=== PATIENT | female | born 1940 | race Two or more races ===

== ENCOUNTER 2024-05-10 17:46 | Inpatient (IN) | payer MEDICARE, MEDICAID ==
[~2024-05-10] VITALS: Ht 160 cm; Wt 129.2 kg
--- NOTE | 2024-05-10 17:57 | ECG ---
[facility] Test Date: 2024-05-10 Test Time: 17:52:45 Pat Name: VISHAL MATHUR Department: ER Room: 0279 Gender: F Plant Attendant: EDWIN : 1940 Requested By: ERIC ACOSTA Order Number: [id number] Reading MD: Stevie Cote Measurements Intervals [place] Rate: 79 P: 11 MO: 187 QRS: -53 QRSD: 86 T: 53 QT: 387 QTc: 444 Interpretive Statements Sinus rhythm Left anterior fascicular block Anterior infarct, old Electronically Signed On 05-12-2024 8:53:11 PST by Stevie Cote Please click the below link to view image of tracing.
--- NOTE | 2024-05-10 18:44 | ECG ---
[facility] Test Date: 2024-05-10 Test Time: 18:43:16 Pat Name: VISHAL MATHUR Department: ER Room: 0279 Gender: F Rate Analyst: GP : 1940 Requested By: ERIC ACOSTA Order Number: [id number] Reading MD: Stevie Cote Measurements Intervals [place] Rate: 77 P: 19 GA: 188 QRS: -57 QRSD: 87 T: 94 QT: 392 QTc: 444 Interpretive Statements Sinus rhythm Probable left atrial enlargement Left anterior fascicular block Low voltage, precordial leads Consider anterior infarct Baseline wander in lead(s) I,II,III,aVL,aVF,V1 Electronically Signed On 05-12-2024 8:53:21 PST by Stevie Cote Please click the below link to view image of tracing.
--- NOTE | 2024-05-10 19:34 | ED.PDOC ---
History of Present Illness HPI Comments 83 y/o F, with a Hx of rheumatoid arthritis, morbid obesity, DM, HTN, and furosemide use, presents with daughter for c/o shortness of breath, fatigue, and right-upper back pain, today. Per daughter, patient has been sick with a cold, lately, characterized by fever, chills, and nonproductive cough, since 05/06/24,. She is stated to developed aforementioned symptoms, this evening, after waking up from a nap. Patient comments on back pain being secondary to a skin infection she has in that same area for unknown period of time and reports mixed compliancy in regards to taking her antibiotic medications for it. Daughter also notes on patient being on O2, lately, due to noticing her O2 saturation being in high 80's range since 05/06/24. Patient denies having any chest pain, dizziness, lightheadedness, nausea, vomiting, or other associated symptoms or [id number] at this time. Chief Complaint: Chest Pain Time Seen by MD: 17:55 Reviewed Notes: Nurses Notes, Medications, Allergies Allergies: Coded Allergies: NO KNOWN ALLERGIES (Unverified , 05/10/24) Information Source: Patient Mode of Arrival: Wheelchair Severity: Moderate Timing: Hours Duration: Since onset Prehospital treatment: Other (see HPI) Past Medical History PAST MEDICAL HISTORY: Arthritis (rheumatoid), DM, HTN Past Medical History (Other): morbid obesity, furosemide use Constitutional: reports: chills, fatigue, fever Respiratory: reports: cough, shortness of breath Musculoskeletal: reports: back pain All Other Systems: Reviewed and Negative (negative unless otherwise stated above or in HPI) Physical Exam General Appearance: No Apparent Distress, Obese HEENT: Normal ENT Inspection, Pharynx Normal, TMs Normal Neck: Full Range of Motion, Non-Tender, Normal, Normal Inspection Respiratory: Chest Non-Tender, Lungs Clear, No Accessory Muscle Use, No Respiratory Distress, Normal Breath Sounds Cardiovascular: No Edema, No JVD, No Murmur, No Gallop, Normal Peripheral Pulses, Regular Rate/Rhythm Breast Exam: Deferred Gastrointestinal: No Organomegaly, Non Tender, No Pulsatile Mass, Normal Bowel Sounds, Soft Genitalia: Deferred Pelvic: Deferred Rectal: Deferred Extremities: No calf tenderness, Normal capillary refill, Normal inspection, Normal range of motion, Non-tender, No pedal edema Musculoskeletal : Apperance: Normal Neurologic: Alert, ingot stripper II-XII nml as Tested, No Motor Deficits, Normal Affect, Normal Mood, No Sensory Deficits Cerebellar Function: Normal Reflexes: Normal Skin: Dry, Normal Color, Warm Lymphatic: No Adenopathy Was a procedure done? 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, Ant, Infarct Comments LAFB EKG #2: Pulse Rate (adult): 77 [place]: Normal Cardiac Rhythm: NSR Block: None Hypertrophy: None ST: Normal Comments LAFB Differential Dx Considerations may include: OR, PE, ACS, PNA, URI, viral syndrome, anxiety X-Ray, Labs, Meds, VS Vital Signs Date Time Temp Pulse Resp B/P (MAP) Pulse Ox O2 Delivery O2 Flow Rate FiO2 05/10/24 19:33 77 05/10/24 18:43 77 05/10/24 17:56 97.4 90 18 134/49 (77) 92 05/10/24 17:52 79 Lab Test 05/10/24 21:01 05/10/24 17:59 Range/Units Troponin I High Sensitivity Pending 3 L </=34 ng/L White Blood Count Pending Red Blood Count Pending Hemoglobin Pending Hematocrit Pending Mean Corpuscular Volume Pending Mean Corpuscular Hemoglobin Pending Mean Corpuscular Hemoglobin Concent Pending Red Cell Distribution Width Pending Platelet Count Pending Mean Platelet Volume Pending Neutrophils (%) (Auto) Pending Lymphocytes (%) (Auto) Pending Monocytes (%) (Auto) Pending Basophils (%) (Auto) Pending Neutrophils # (Auto) Pending Lymphocytes # (Auto) Pending Monocytes # (Auto) Pending Sodium Level 138 136-145 mmol/L Potassium Level 3.9 3.5-5.1 mmol/L Chloride Level 104 98-107 mmol/L Carbon Dioxide Level 26 20-31 mmol/L Anion Gap 8 5-15 Blood Urea Nitrogen 10 9-23 mg/dL Creatinine 0.82 0.550-1.02 mg/dL Glomerular Filtration Rate Calc 70 >90 mL/min BUN/Creatinine Ratio 12.2 10.0-20.0 Serum Glucose 124 H 74-106 mg/dL Calcium Level 9.1 8.7-10.4 mg/dL [facility] [address] [facility] [address] Ph: [phone] DIAGNOSTIC IMAGING Diagnostic Imaging Report : [id number] Signed PATIENT: VISHAL MATHUR ACCT: [id number] UNIT: [id number] : 1940 LOC: ER ROOM / BED: / AGE / SEX: 83 / F ADM STATUS: REG ER SERVICE 44 ORDERING PHYSICIAN: MANUEL BASURTO MD PROCEDURE(s): CXR2 - CHEST TWO VIEWS ROUTINE REASON: chest pain ORDER NUMBER(s): [id number], ACCESSION NUMBER(s): [id number] EXAMINATION: PA and lateral chest radiographs CLINICAL HISTORY: chest pain COMPARISON: None FINDINGS: Mild diffuse interstitial prominence. Hazy airspace opacity left lower lung field. No definite pneumothorax. Mild prominence of the cardiac silhouette. IMPRESSION: Left lower lobe trace opacity may be of infectious etiology. Interstitial prominence is relatively nonspecific but can be seen with edema, reactive airway changes as well as atypical infection. Please correlate clinically. ATED BY: RAMSES ORELLANA MD DICTATED DATE/TIME: 05/10/241932 SIGNED BY: RAMSES ORELLANA MD SIGNED DATE/TIME: 05/10/241932 CC: Time of 1ST Reevaluation: 18:25 Reevaluation 1ST: Unchanged Patient Education/Counseling: Diagnosis, Treatment Family Education/Counseling: Diagnosis, Treatment Additional Information The following tests were ordered, and results were reviewed by me: CXR, EKG, CBC, BMP, troponin Additional Information was gathered from interviewing the following independent historians: daughter I reviewed and agreed with the following test results read by other providers: CXR I discussed treatment and results with medical personnel and: daughter Departure 1 Departure Time of Disposition: 21:22 (Patient with a pneumonia. Patient is not septic. We will empirically cover patient with antibiotics and admit patient.) Impression: Primary Impression: Left lower lobe pneumonia Qualified Codes: J18.9 - Pneumonia, unspecified organism Additional Impressions: Left-sided chest pain Cough Qualified Codes: R05.1 - Acute cough Disposition: ADMITTED INPATIENT Admit to: Med Surg Condition: Serious Critical Care Note Critical Care Time?: No Stability Stability form required: No Heart Score Heart Score: Heart Score Response (Comments) Value History Moderate Suspicious 1 EKG Normal 0 Age >65 2 Risk Factors >3 or Hx ASHD 2 Troponin Normal limit 0 Total 5 I personally scribed for MANUEL BASURTO MD ([email or web address]) on 05/10/24 at 19:33. Electronically submitted by Jeevan Quinones ([email or web address]). I personally scribed for MANUEL BASURTO MD ([email or web address]) on 05/10/24 at 20:02. Electronically submitted by Jeevan Quinones ([email or web address]). MANUEL BASURTO MD May 10, 2024 19:33
[2024-05-10 20:40] LABS: Chloride 104 mmol/L (98-107); Potassium 3.9 mmol/L (3.5-5.1); Sodium 138 mmol/L (136-145)
[2024-05-10 20:41] LABS: Anion Gap 8 (5-15); Calcium 9.1 mg/dL (8.7-10.4); Carbon Dioxide 26 mmol/L (20-31)
[2024-05-10 20:46] LABS: BUN/Creatinine Ratio 12.2 (10.0-20.0); Blood Urea Nitrogen 10 mg/dL (9-23)
[2024-05-10 21:05] LABS: Glucose 124 mg/dL (74-106)
[2024-05-10] MEDS ORDERED: CEFEPIME 2GM/50ML NS 50 ML IV ONE (21:15)
[2024-05-10] MEDS: AZITHROMYCIN 250 MG TAB PO ONE (22:03)
[2024-05-10] MEDS: CEFEPIME 2GM/50ML NS 50 ML IV ONE (22:10)
[2024-05-10] MEDS ORDERED: ACETAMINOPHEN 325 MG TAB PO PRN (22:30)
[2024-05-10] MEDS: VANCOMYCIN 1GM/250ML KIT 200 ML IV ONE (22:59)
[2024-05-10 23:30] LABS: Basophils # (auto) 0 10 ^3/uL (0-0.2); Basophils % (auto) 0.3 % (0.0-2.0); Eosinophils # (auto) 0 10 ^3/uL (0-0.8); Eosinophils % (auto) 1.2 % (0.0-7.0); Hematocrit 36.4 % (36.0-46.0); Hemoglobin 12.2 g/dL (12.2-16.2); Lymphocytes # (auto) 1.2 10 ^3/uL (0.4-5.4); Lymphocytes % (auto) 30.9 % (10.0-50.0); Mean Corpuscular Hemoglobin 29.3 pg (28.0-32.0); Mean Corpuscular Hgb Conc. 33.4 g/dL (32.0-36.0); Mean Corpuscular Volume 87.7 fL (80.0-100.0); Monocytes # (auto) 0.5 10 ^3/uL (0-1.3); Monocytes % (auto) 11.5 % (0.0-12.0); Neutrophils # (auto) 2.3 10 ^3/uL (1.6-8.6); Neutrophils % (auto) 56.1 % (37.0-80.0); Nucleated Red Blood Cells % 0.1 %; Platelet Count (auto) 130 10^3/uL (140-450); Red Blood Cells 4.15 10^6/uL (4.0-5.20); Red Cell Distribution Width 14.9 % (11.8-14.3)
--- NOTE | 2024-05-10 23:34 | DVHHPRES ---
History of Present Illness Resident Creating Document: SHAIKHVASILE RESIDENT History of Present Illness Patient is an 83-year-old female with past medical history of rheumatoid arthritis, hypertension, osteoarthritis, who came in due to increasing shortness of breath. According to the patient, for the last 1 week she has been exp eriencing chills, flu-like symptoms for which she tried using home remedies, however, her symptoms progressively worsened. Per patient and daughter at bedside, her shortness of breaths has worsened to the point where she feels out of breath when walking from her bedroom to the bathroom, notes feeling out of breath and dyspnea on eating. Patient was given home oxygen 3 L in 2021, however, patient states she does not use her home oxygen as she does not feel the need to. Over the last few days, patient notes she tried using her home oxygen however that did not relieve her shortness of breath and dyspnea. She notes having similar symptoms in the past when she was diagnosed with COVID pneumonia in 2021. Patient also notes pain and tenderness to palpation along her back at the level of T4-T5, which she was told during an online consultation is likely from the underlying infection(pneumonia)/coughing, no apparent skin lesions noted. On review of systems, patient is complaining of fatigue, fever, chills, dry cough, dyspnea and shortness of breath. Chest x-ray showed a left lower lobe trace opacity. Past Medical History rheumatoid arthritis, hypertension, osteoarthritis Past Surgical History Left cochlear implant, breast reduction surgery, hysterectomy, appendectomy, cholecystectomy Smoke: No ALCOHOL: rare Drugs: None Lives: Alone Review of Systems Constitutional: Yes: Fever, Chills, Malaise; No: Sweats, Weakness, Other Eyes: No: Pain, Vision change, Conjunctivae inflammation, Eyelid inflammation, Other, Redness ENT: Nose discharge, Nose congestion, Throat pain; No: Ear pain, Ear discharge, Nose pain, Mouth pain, Mouth swelling, Throat swelling, Other Respiratory: Cough, Dry, Shortness of breath, SOB with excertion, Wheezing; No: Hemoptysis, Pleuritic Pain, Sputum, Wheezing, Other Cardiovascular: No: Chest Pain, Palpitations, Orthopnea, Paroxysmal Noc. Dyspnea, Edema, Lt Headedness, Other Gastrointestinal: No: Nausea, Vomiting, Abdominal Pain, Diarrhea, Constipation, Melena, Hematochezia, Other Genitourinary: No Dysuria, No Frequency, No Incontinence, No Hematuria, No Retention, No Other Musculoskeletal: No: other, neck pain, shoulder pain, arm pain, back pain, hand pain, leg pain, foot pain Skin: No: Rash, Lesions, Jaundice, Bruising, Other Neurological: No: Weakness, Numbness, Incoordination, Change in speech, Confusion, Seizures, Other Allergies: Coded Allergies: NO KNOWN ALLERGIES (Unverified , 05/10/24) Medications Current Medications Medications Dose Ordered Sig/Devendra Route Start Time Stop Time Status Last Admin Dose Admin Acetaminophen 650 mg Q6HP PRN PO 05/10/24 22:30 Exam Vital Signs Vital Signs Date Time Temp Pulse Resp B/P (MAP) Pulse Ox O2 Delivery O2 Flow Rate FiO2 05/10/24 23:32 98.3 71 22 157/63 (94) 93 98.3 05/10/24 22:05 Room Air General Appearance: Alert, Oriented X3, Cooperative, mild distress HEENT: Atraumatic, PERRLA, EOMI, Mucous membr. moist/pink Respiratory: Other (Scattered bilateral wheezes) Cardiovascular: Regular rate, Normal S1, Normal S2, No murmurs Abdominal: Normal bowel sounds, Soft, No tenderness Extremities: No clubbing, No cyanosis, Other (2+ lower extremity edema) Skin: No significant lesion Neuro: Normal speech, Sensation intact Psych/Mental Status: Mental status NL, Mood NL Labs/Xrays Labs Test 05/10/24 23:06 05/10/24 22:45 05/10/24 17:59 Range/Units White Blood Count 4.0 L 4.4-10.8 10^3/uL Red Blood Count 4.15 4.0-5.20 10^6/uL Hemoglobin 12.2 12.2-16.2 g/dL Hematocrit 36.4 36.0-46.0 % Mean Corpuscular Volume 87.7 80.0-100.0 fL Mean Corpuscular Hemoglobin 29.3 28.0-32.0 pg Mean Corpuscular Hemoglobin Concent 33.4 32.0-36.0 g/dL Red Cell Distribution Width 14.9 H 11.8-14.3 % Platelet Count 130 L 140-450 10^3/uL Mean Platelet Volume 9.3 6.9-10.8 fL Neutrophils (%) (Auto) 56.1 37.0-80.0 % Lymphocytes (%) (Auto) 30.9 10.0-50.0 % Monocytes (%) (Auto) 11.5 0.0-12.0 % Eosinophils (%) (Auto) 1.2 0.0-7.0 % Basophils (%) (Auto) 0.3 0.0-2.0 % Neutrophils # (Auto) 2.3 1.6-8.6 10 ^3/uL Lymphocytes # (Auto) 1.2 0.4-5.4 10 ^3/uL Monocytes # (Auto) 0.5 0-1.3 10 ^3/uL Eosinophils # (Auto) 0 0-0.8 10 ^3/uL Basophils # (Auto) 0 0-0.2 10 ^3/uL Nucleated Red Blood Cells 0.1 % Sodium Level 138 136-145 mmol/L Potassium Level 3.9 3.5-5.1 mmol/L Chloride Level 104 98-107 mmol/L Carbon Dioxide Level 26 20-31 mmol/L Anion Gap 8 5-15 Blood Urea Nitrogen 10 9-23 mg/dL Creatinine 0.82 0.550-1.02 mg/dL Glomerular Filtration Rate Calc 70 >90 mL/min BUN/Creatinine Ratio 12.2 10.0-20.0 Serum Glucose 124 H 74-106 mg/dL Calcium Level 9.1 8.7-10.4 mg/dL Assessment/Plan Assessment/Plan Acute hypoxic respiratory failure Community-acquired pneumonia, Gram-positive versus Gram-negative - CXR: Left lower lobe trace opacity may be of infectious etiology. Interstitial prominence is relatively nonspecific but can be seen with edema, reactive airway changes as well as atypical infection. Please correlate clinically. - IV Rocephin, IV azithromycin - ordered sputum culture, MRSA, COVID and influenza - incentive spirometry - ipratropium and albuterol med nebs as needed - Robitussin as needed for cough Rule out congestive heart failure - ordered BNP - ordered echocardiogram Hypertension - resumed home medication atenolol 25 mg Goals of care: Full code, discussed for >16 minutes on 05/10/2024 Plan discussed with patient Plan discussed with Dr. Mcclure Plan discussed with: Patient, Daughter, Other (RN) My Orders Orders - VASILE SHAIKH RESIDENT Procedure Category Date Status Time Admit ADMIT 05/10/24 Transmitted 22:30 Code Status CODE 05/10/24 Transmitted 22:30 Vital Signs PRATIK 05/10/24 In Process 22:30 Review Orders With PRATIK 05/10/24 In Process Adm. 22:30 Acetaminophen Tablet PHA 05/10/24 In Process (Tylenol Tablet) 22:30 Notify Md Of Changes PRATIK 05/10/24 In Process From Base 22:30 Advance Directive PRATIK 05/10/24 In Process 22:30 Patient Condition ORDERS 05/10/24 Transmitted 22:30 Allergies PRATIK 05/10/24 In Process 22:30 Sequential PRATIK 05/10/24 In Process Compression Device Notify Md Of Changes PRATIK 05/10/24 In Process From Base 22:30 Urinalysis LAB 05/10/24 Logged 23:07 Hemoglobin A1c LAB 05/10/24 In Process 23:07 B-Type Natriuretic LAB 05/10/24 In Process Peptide 23:07 Lipid Panel LAB 05/10/24 In Process 23:07 Mrsa Screen UNA 05/10/24 Logged 23:07 Respiratory Culture UNA 05/10/24 Logged W/ Gs 23:07 Incentive Spirometry ORDERS 05/10/24 Transmitted 23:07 Date of Service: May 10, 2024 Billing Provider: BRE SANCHEZ MD Common Visit Codes: [id number] INP/OBS CARE (HIGH) VASILE SHAIKH RESIDENT May 10, 2024 23:34 BRE SANCHEZ MD May 11, 2024 09:40
[2024-05-10 23:35] VITALS: PULSE 72; RESP 22; O2SAT 98
[2024-05-10 23:48] LABS: Triglycerides 72 mg/dL (< 150)
[2024-05-10 23:49] LABS: Cholesterol 103 mg/dL (< 200); LDL Cholesterol 52 mg/dL (< 100)
[2024-05-10 23:54] VITALS: O2SAT 98
[2024-05-10 23:58] LABS: HDL Cholesterol 39 mg/dL (40-59)
[2024-05-11] VITALS (14 sets, daily range): BP systolic 116–157; BP diastolic 47–79; PULSE 54–76; RESP 16–22; TEMP 97.5–98.4; O2SAT 93–100
[2024-05-11 00:15] LABS: COVID19 ANTIGEN SOFIA FIA NEGATIVE (NEGATIVE)
[2024-05-11 00:16] LABS: Rapid Influenza A Negative (Negative); Rapid Influenza B Negative (Negative)
[2024-05-11 01:44] LABS: Urine Bacteria FEW /hpf (None Seen); Urine Blood Negative /uL (Negative); Urine Clarity Clear (Clear); Urine Color Light-Yellow (Yellow); Urine Protein, UAD Negative (Negative); Urine Specific Gravity 1.009 (1.001-1.035); Urine Squamous Epithelial Cell FEW /hpf (<5); Urine Urobilinogen Normal (Negative); Urine WBC 4 /HPF (0-5)
[2024-05-11] MEDS ORDERED: NAP500T PO (05:10)
[2024-05-11] MEDS ORDERED: FURO40TA4 PO (05:10)
[2024-05-11] MEDS ORDERED: FAMO-12 PO (05:10)
[2024-05-11] MEDS ORDERED: ROSU10TA16 PO (05:10)
[2024-05-11] MEDS ORDERED: ATEN-60 PO (05:10)
[2024-05-11] MEDS ORDERED: POTA-36 PO (05:10)
[2024-05-11] MEDS: ALBUTEROL SULF 2.5 MG/0.5ML(0.5%) NEB SOLN NEB SCH (07:32)
[2024-05-11] MEDS: IPRATROPIUM BROM 0.5 MG/2.5ML INH SOL NEB SCH (07:32)
[2024-05-11] MEDS: cefTRIAXone 1GM/50ML D5W 50 ML IV SCH (08:54)
[2024-05-11] MEDS: ATENOLOL 25 MG TAB PO SCH (09:58)
[2024-05-11 11:01] LABS: Basophils # (auto) 0 10 ^3/uL (0-0.2); Basophils % (auto) 0.2 % (0.0-2.0); Eosinophils # (auto) 0.1 10 ^3/uL (0-0.8); Hematocrit 35.4 % (36.0-46.0); Hemoglobin 11.8 g/dL (12.2-16.2); Lymphocytes # (auto) 0.9 10 ^3/uL (0.4-5.4); Lymphocytes % (auto) 30.5 % (10.0-50.0); Mean Corpuscular Hemoglobin 29.1 pg (28.0-32.0); Mean Corpuscular Hgb Conc. 33.4 g/dL (32.0-36.0); Mean Corpuscular Volume 87.3 fL (80.0-100.0); Monocytes # (auto) 0.3 10 ^3/uL (0-1.3); Monocytes % (auto) 8.7 % (0.0-12.0); Neutrophils # (auto) 1.8 10 ^3/uL (1.6-8.6); Neutrophils % (auto) 58.6 % (37.0-80.0); Nucleated Red Blood Cells % 0.1 %; Platelet Count (auto) 119 10^3/uL (140-450); Red Blood Cells 4.06 10^6/uL (4.0-5.20); Red Cell Distribution Width 14.8 % (11.8-14.3)
[2024-05-11 11:17] LABS: Chloride 104 mmol/L (98-107); Potassium 3.9 mmol/L (3.5-5.1); Sodium 139 mmol/L (136-145)
[2024-05-11 11:18] LABS: Anion Gap 4 (5-15); Calcium 9.2 mg/dL (8.7-10.4); Carbon Dioxide 31 mmol/L (20-31)
[2024-05-11 11:23] LABS: BUN/Creatinine Ratio 15.8 (10.0-20.0)
[2024-05-11 11:30] LABS: Blood Urea Nitrogen 9 mg/dL (9-23); Glucose 114 mg/dL (74-106)
[2024-05-11] MEDS: FUROSEMIDE 20 MG/2 ML VIAL IV ONE (11:37)
--- NOTE | 2024-05-11 16:30 | DVHPNRES ---
Progress Note Date Seen: May 11, 2024 Resident Creating Document: EDGARDO MANNING RESIDENT Medical Necessity Reason Pt with a Central, PICC or Fol: No Subjective Review of Systems Patient is an 83-year-old female with past medical history of rheumatoid arthritis, hypertension, osteoarthritis,on home oxygen 3 L presented to the ED for an evaluation of progressive shortness of breath. According to the patient, for the last 1 week she has been experiencing chills, flu-like symptoms for which she tried using home remedies, however, her symptoms progressively worsened. Per patient and daughter at bedside, her shortness of breaths has worsened to the point where she feels out of breath when walking from her bedroom to the bathroom, notes feeling out of breath and dyspnea on eating. Patient was seen and examined on the bedside. she is alert oriented x3. Mentioned improving shortness of breath after breathing treatment and complains of chest pain during deep breathing . No other active complaints. Constitutional: Chills, malaise No: Fever, Sweats, Weakness, Other Eyes: No: Pain, Vision change, Conjunctivae inflammation, Eyelid inflammation, Other, Redness ENT: No: Ear pain, Ear discharge, Nose pain, Nose discharge, Nose congestion, Mouth pain, Mouth swelling, Throat pain, Throat swelling, Other Respiratory: Shortness of breath, improving , Cough, No Dry, Wheezing, Hemoptysis, Pleuritic Pain, Sputum, Wheezing, Other Cardiovascular: No: Chest Pain, Palpitations, Orthopnea, Paroxysmal Noc. Dyspnea, Edema, Lt Headedness, Other Gastrointestinal: No: Nausea, Vomiting, Abdominal Pain, Diarrhea, Constipation, Melena, Hematochezia, Other Musculoskeletal: No: other, neck pain, shoulder pain, arm pain, back pain, hand pain, leg pain, foot pain Neurological:; No: Weakness, Numbness, Incoordination, Change in speech, Confusion, Seizures Objective vital signs Vital Sign Date Time Temp Pulse Resp B/P (MAP) Pulse Ox O2 Delivery O2 Flow Rate FiO2 05/11/24 12:37 98.0 67 18 132/54 (80) 97 98.0 05/11/24 11:47 Nasal Cannula* 2 28 Total Intake and Output 05/10/24 05/10/24 05/11/24 15:00 23:00 07:00 Intake Total 50 ml 440 ml Balance 50 ml 440 ml medications Current Medications Medications Dose Ordered Sig/Devendra Route Start Time Stop Time Status Last Admin Dose Admin Acetaminophen 650 mg Q6HP PRN PO 05/10/24 22:30 Ceftriaxone Sodium 50 ml @ 100 mls/hr DAILY@09 IV 05/11/24 09:00 05/11/24 08:54 100 MLS/HR Azithromycin 250 ml @ 125 mls/hr Q24H IV 05/11/24 22:00 Guaifenesin 200 mg Q6HP PRN PO 05/10/24 23:45 Ipratropium [place] 0.5 mg Q6HWA [facility] 05/11/24 06:00 05/11/24 11:47 0.5 MG Albuterol 2.5 mg Q6HWA NEB 05/11/24 06:00 05/11/24 11:47 2.5 MG Atenolol 25 mg BID PO 05/11/24 10:00 05/11/24 09:58 25 MG Examination Physical examination: General Appearance: Alert, Oriented X3, Cooperative, No acute distress HEENT: Atraumatic, PERRLA, EOMI, Mucous membrane moist/pink Respiratory: Lt sided basal crackles and Rt sided decreased breath sound. Cardiovascular: Regular rate, Normal S1, Normal S2, No murmurs, no chest wall tenderness Abdominal: Normal bowel sounds, Soft, No tenderness, No hepatospenomegaly, No masses Extremities: Bilateral pedal edema +, No clubbing, No cyanosis, Normal pulses. Skin: No rashes, No breakdown, No significant lesion Neuro: Use cane, Normal speech, Strength at 5/5 X4 ext, Normal tone, Sensation intact, grossly intact cranial nerves. Psych/Mental Status: Mental status NL, Mood NL laboratory and microbiology Laboratory Tests 05/11/24 10:01 Test 05/11/24 10:01 Range/Units Serum Glucose 114 H 74-106 mg/dL Microbiology Date/Time Source Procedure Growth Status 05/10/24 23:45 Nose MRSA Screen - Final Complete Labs and/or images reviewed: Labs reviewed by me, Image(s) reviewed by me Problem List/Assessment/Plan Problem List/Assessment/Plan Assessment/Plan # Acute hypoxic respiratory failure likely secondary to Community-acquired pneumonia, Gram-positive versus Gram-negative # Community-acquired pneumonia, Gram-positive versus Gram-negative # Rule out interstitial lung disease - CXR: Left lower lobe trace opacity may be of infectious etiology. Interstitial prominence is relatively nonspecific but can be seen with edema, reactive airway changes as well as atypical infection. - Covid/Flu/MRSA negative - Pending sputum culture - IV ceftriaxone 1 gm daily and IV azithromycin 500 mg daily. - incentive spirometry - ipratropium and albuterol med nebs as needed - Robitussin as needed for cough - Consulted Pulmonology. # Rule out congestive heart failure - BNP is mildly elevated - Pending echocardiogram # Hypertension - resumed home medication atenolol 25 mg # Prediabetic, HbA1C 5.8 - Counseled patient regarding low carb diet, lifestyle modification and moderate intensity exercise. Diet : Cardiac diet PUD prophylaxis: Pepcid 20 mg daily DVT prophylaxis: Lovenox 40 mg SC daily. Code status : Full code Plan discussed with Dr. Mcclure Plan discussed with: Patient, Daughter, Other My Orders My Orders Orders - EDGARDO MANNING Procedure Category Date Status Time *Consult CONS 05/11/24 Transmitted / 11:46 Dietary Evaluation Review Recommendations by RD: Dietary education by RD Date of Service: May 11, 2024 Billing Provider: BRE SANCHEZ MD Common Visit Codes: [id number] INP/OBS CARE(HIGH) EDGARDO MANNING RESIDENT May 11, 2024 16:30 BRE SANCHEZ MD May 18, 2024 23:44
[2024-05-11] MEDS: AZITHROMYCIN 500MG/ 250ML 250 ML IV SCH (22:15)
--- NOTE | 2024-05-11 23:07 | DVHINCON2 ---
Date of service: May 11, 2024 Referring Physician Tamar Ortega MD Reason for Consultation Acute hypoxic respiratory failure, pneumonia History of Present Illness An 83-year-old woman with PMHx of rheumatoid arthritis, hypertension, and osteoarthritis, who presented to ED on 05/10/24 due to increasing shortness of breath. Pt reported chills, flu-like symptoms for the past 1 week, for which she tried home remedies, however, symptoms progressively worsened. Per patient and daughter at bedside, her SOB has worsened to the point where she feels out of breath when walking from her bedroom to the bathroom, feeling out of breath on eating. She was given home oxygen 3 L in 2021, however, does not use it. Over the past few days, pt used her home oxygen without relief of symptoms. She had similar symptoms in the past when she had COVID pneumonia in 2021. Patient also notes pain and tenderness to palpation along her back at the level of T4- T5, which she was told is likely from underlying infection(pneumonia)/coughing. On review of systems, patient c/o fatigue, fever, chills, dry cough, dyspnea. Chest x-ray showed left lower lobe trace opacity. Patient was admitted for further care and pulmonary consultation is requested for evaluation and management due to the above findings. Review of Systems: 14-point review of systems negative unless otherwise noted above. Past Medical History: Rheumatoid arthritis, hypertension, osteoarthritis Past Surgical History: Left cochlear implant, breast reduction surgery, hysterectomy, appendectomy, cholecystectomy Medications: Reviewed. Allergies: No known drug allergies. Family History: No family history of premature CAD. No family history of lung disorders. Social History: Nonsmoker. No alcohol or illicit drug use. Family History: Patient reports no known family medical history. Allergies: Coded Allergies: NO KNOWN ALLERGIES (Unverified , 05/10/24) Home Meds Reported Medications Potassium Chloride (POTASSIUM CHLORIDE CR) 10 Meq Tb, 1 TAB PO DAILY, #30 TAB 5 Refills 05/11/24 Furosemide (Furosemide) 40 Mg Tab, 40 MG PO DAILY for 30 Days 05/11/24 Famotidine (Famotidine) 20 Mg Tab, 20 MG PO DAILY for 30 Days, MG 05/11/24 Naproxen (NAPROSYN TABLET) 500 Mg Tb, 1 TAB PO DAILY, #60 TAB 1 Refill 05/11/24 Atenolol (Atenolol) 25 Mg Tab, 25 MG PO BID for 30 Days, MG 05/11/24 Rosuvastatin Calcium (Crestor) 10 Mg Tab, 1 TAB PO DAILY, #30 TAB 5 Refills 05/11/24 Current Medications Current Medications Medications (Trade) Dose Ordered Sig/Devendra Route PRN Reason Start Time Stop Time Status Last Admin Ceftriaxone Sodium 50 ml @ 100 mls/hr DAILY@09 IV 05/11/24 09:00 05/11/24 08:54 Azithromycin 250 ml @ 125 mls/hr Q24H IV 05/11/24 22:00 05/11/24 22:15 Guaifenesin (Robitussin Plain Liquid) 200 mg Q6HP PRN PO FOR COUGH 05/10/24 23:45 Ipratropium [place] (Atrovent Medneb) 0.5 mg Q6HWA [facility] 05/11/24 06:00 05/11/24 19:24 Albuterol (Ventolin Medneb) 2.5 mg Q6HWA [facility] 05/11/24 06:00 05/11/24 19:24 Atenolol (Tenormin Tablet) 25 mg BID PO 05/11/24 10:00 05/11/24 22:21 Furosemide (Lasix Injection) 20 mg DAILY IV 05/12/24 10:00 Famotidine (Pepcid Tablet) 20 mg DAILY PO 05/12/24 10:00 Enoxaparin Sodium (Lovenox) 40 mg DAILY SC 05/12/24 10:00 Vital Signs Vital Signs Date Time Temp Pulse Resp B/P (MAP) Pulse Ox O2 Delivery O2 Flow Rate FiO2 05/11/24 22:21 76 144/79 05/11/24 19:30 20 97 05/11/24 19:24 Nasal Cannula 2.0 05/11/24 19:24 28 05/11/24 17:00 97.8 97.8 Physical Exam Gen.: Patient lying in bed in no apparent distress. On supplemental oxygen. Head: Normocephalic, atraumatic. Eyes: EOMI/PERRLA. Ears: Normal hearing. Normal anatomy. Neck/trachea: Trachea midline, supple. Nose: Normal external anatomy. Mouth: Moist mucous membranes. Chest: Decreased air entry bilaterally. No wheezing or rhonchi. Cardiovascular: Positive S1, positive S2. Regular rate and rhythm. Abdomen: Positive bowel sounds in all 4 quadrants. Soft, non-tender, non- distended. : Deferred. Rectal: Deferred. Skin: Warm, dry. Intact. Extremities: 2+ radial pulses bilaterally. No lower extremity edema. Neuro: Awake, alert, oriented x3. No gross motor or sensory deficits. Cranial nerves II through XII intact. Gait not assessed. Labs/Diagnostic Data Labs Test 05/11/24 10:01 05/11/24 00:26 05/10/24 23:06 05/10/24 22:45 Range/Units White Blood Count 3.0 L 4.4-10.8 10^3/uL Red Blood Count 4.06 4.0-5.20 10^6/uL Hemoglobin 11.8 L 12.2-16.2 g/dL Hematocrit 35.4 L 36.0-46.0 % Mean Corpuscular Volume 87.3 80.0-100.0 fL Mean Corpuscular Hemoglobin 29.1 28.0-32.0 pg Mean Corpuscular Hemoglobin Concent 33.4 32.0-36.0 g/dL Red Cell Distribution Width 14.8 H 11.8-14.3 % Platelet Count 119 L 140-450 10^3/uL Mean Platelet Volume 9.0 6.9-10.8 fL Neutrophils (%) (Auto) 58.6 37.0-80.0 % Lymphocytes (%) (Auto) 30.5 10.0-50.0 % Monocytes (%) (Auto) 8.7 0.0-12.0 % Eosinophils (%) (Auto) 2.0 0.0-7.0 % Basophils (%) (Auto) 0.2 0.0-2.0 % Neutrophils # (Auto) 1.8 1.6-8.6 10 ^3/uL Lymphocytes # (Auto) 0.9 0.4-5.4 10 ^3/uL Monocytes # (Auto) 0.3 0-1.3 10 ^3/uL Eosinophils # (Auto) 0.1 0-0.8 10 ^3/uL Basophils # (Auto) 0 0-0.2 10 ^3/uL Nucleated Red Blood Cells 0.1 % Sodium Level 139 136-145 mmol/L Potassium Level 3.9 3.5-5.1 mmol/L Chloride Level 104 98-107 mmol/L Carbon Dioxide Level 31 20-31 mmol/L Anion Gap 4 L 5-15 Blood Urea Nitrogen 9 9-23 mg/dL Creatinine 0.57 # 0.550-1.02 mg/dL Glomerular Filtration Rate Calc 90 >90 mL/min BUN/Creatinine Ratio 15.8 10.0-20.0 Serum Glucose 114 H 74-106 mg/dL Calcium Level 9.2 8.7-10.4 mg/dL Urine Color Light-yellow Yellow Urine Clarity Clear Clear Urine pH 6.0 5.0-9.0 Urine Specific [place] 1.009 1.001-1.035 Urine Protein Negative Negative Urine Ketones 1+ H Negative Urine Blood Negative Negative /uL Urine Nitrite Negative Negative Urine Bilirubin Negative Negative Urine Urobilinogen Normal Negative mg/dL Urine Leukocyte Esterase Trace Negative /uL Urine RBC <1 0 - 4 /hpf Urine Microscopic WBC 4 0-5 /HPF Urine Squamous Epithelial Cells Few <5 /hpf Urine Bacteria Few H None Seen /hpf Urine Glucose Normal Normal mg/dL Hemoglobin A1c 5.8 H <5.7 % A1C Lactic Acid Level 1.3 0.4-2.0 mmol/L Troponin I High Sensitivity 4 </=34 ng/L B-Type Natriuretic Peptide 126.38 0-100 pg/mL Triglycerides Level 72 < 150 mg/dL Cholesterol Level 103 < 200 mg/dL LDL Cholesterol 52 < 100 mg/dL HDL Cholesterol 39 L 40-59 mg/dL Influenza Type A Antigen Negative Negative Influenza Type B Antigen Negative Negative SARS-CoV-2 Antigen (Rapid) Negative NEGATIVE Microbiology Date/Time Source Procedure Growth Status 05/10/24 23:45 Nose MRSA Screen - Final Complete Assessment Impression: Acute hypoxic respiratory failure Dependence on supplemental oxygen Pneumonia, Atypical Atelectasis Interstitial opacities Morbid obesity BMI 50.4 Pleural effusions, trace Ground glass opacities on imaging Plan: Supplemental oxygen 2 LPM NC Titrate to keep O2 sats above 92%. Taper O2 as tolerated. Add humidifier Obtain CT chest to rule out ILD. Continue bronchodilators. Continue antibiotics, cover for atypical organisms Incentive spirometry Follow up sputum cultures Monitor renal function. Monitor electrolytes. Supplement as necessary. Monitor ins and outs. Diet and lifestyle modifications for weight reduction Morbid obesity - complicates all care DVT prophylaxis. Prognosis: Poor given patient's multiple co-morbidities. Rest of plan per hospitalist and other consultants. Thank you Dr. Ortega, for allowing me to participate in this patient's care. Further recommendations will depend on the patient's clinical course. Please do not hesitate to contact me if you have any questions or concerns. This medical document was created using an electronic medical record system with [email or web address] dictation system. Although these documentations are being carefully reviewed, there may still be some phonetic and typographical changes. The errors are purely typographical, due to imperfection on the software program, and do not reflect any compromise in the patient's medical care. Plan discussed with: Patient, Other (NICKY Martini/MD Ortega) JENNIFER JARRETT MD May 11, 2024 23:07
[2024-05-11] MEDS: guaiFENesin 200 MG/10 ML UD PO PRN (23:10)
[2024-05-12] VITALS (13 sets, daily range): BP systolic 108–130; BP diastolic 45–74; PULSE 65–86; RESP 16–20; TEMP 97.4–98.5; O2SAT 93–98
--- NOTE | 2024-05-12 00:19 | DVH ---
CLINICAL HISTORY: left lower lobe opacities TECHNIQUE: CT of the chest was performed without intravenous contrast. This exam was performed accord ing to our departmental dose optimization program. Up-to-date CT equipment and radiation dose reducti on techniques are utilized as appropriate. Radiation optimization: All CT scans at this facility use at least one of these dose optimization techniques: automated exposure control mA and/or kV adjustme nt per patient size (includes targeted exams where dose is matched to clinical indication) or iterat blake reconstruction. COMPARISON: None FINDINGS: Lower Neck: Unremarkable Axilla, Mediastinum and Olive: A mildly prominent left internal mammary lymph node on series 3, image 39. Prominent mediastinal lymph nodes. Limited evaluation of the olive in the absence of intravenous contrast. Heart and Great Vessels: Mild cardiomegaly with trace pericardial fluid. The thoracic aorta is gian l in caliber containing mild calcified atherosclerotic plaque. At least mild coronary artery calcific ations greatest in the left anterior descending coronary artery. Airway, Lungs and Pleura: Trachea and central airways are patent. Linear and ground-glass bilateral o pacities. Trace bilateral pleural effusions. No pneumothorax. Upper Abdomen: Mild splenomegaly. Nodular contour of the liver. Prior cholecystectomy. Portosystemic collateral vessels. Chest Wall and Osseous Structures: No destructive osseous lesion. There is a4 small right shoulder pallavi int effusion. Multilevel thoracic spondylosis. IMPRESSION: 1. Patchy linear and ground-glass opacities bilaterally which could reflect atypical pneumonia. A co mponent of scarring or pulmonary edema could contribute to this appearance. 2. Trace bilateral pleural effusions. 3. Nodular contour of the liver which could be fibrosis or cirrhosis. Mild splenomegaly and small po rtosystemic collateral vessels could be due to underlying portal hypertension. Correlate with liver enzymes and clinical history. 4. Mildly prominent mediastinal and left internal mammary lymph nodes, nonspecific on initial exam th ough may be reactive. 5. Mild cardiomegaly and at least mild coronary artery calcifications.
[2024-05-12 06:33] LABS: Basophils # (auto) 0 10 ^3/uL (0-0.2); Basophils % (auto) 0.2 % (0.0-2.0); Eosinophils # (auto) 0.1 10 ^3/uL (0-0.8); Hematocrit 34.9 % (36.0-46.0); Hemoglobin 11.7 g/dL (12.2-16.2); Lymphocytes % (auto) 26.4 % (10.0-50.0); Mean Corpuscular Hemoglobin 29.5 pg (28.0-32.0); Mean Corpuscular Hgb Conc. 33.7 g/dL (32.0-36.0); Mean Corpuscular Volume 87.7 fL (80.0-100.0); Monocytes # (auto) 0.4 10 ^3/uL (0-1.3); Neutrophils # (auto) 2.4 10 ^3/uL (1.6-8.6); Neutrophils % (auto) 60.4 % (37.0-80.0); Nucleated Red Blood Cells % 0.1 %; Platelet Count (auto) 130 10^3/uL (140-450); Red Blood Cells 3.97 10^6/uL (4.0-5.20); Red Cell Distribution Width 14.6 % (11.8-14.3); White Blood Cell 3.9 10^3/uL (4.4-10.8)
[2024-05-12 06:44] LABS: Anion Gap 8 (5-15); Carbon Dioxide 31 mmol/L (20-31); Chloride 102 mmol/L (98-107); Sodium 141 mmol/L (136-145)
[2024-05-12 06:45] LABS: Calcium 9.6 mg/dL (8.7-10.4)
[2024-05-12 06:50] LABS: BUN/Creatinine Ratio 17.6 (10.0-20.0); Blood Urea Nitrogen 9 mg/dL (9-23); Glucose 96 mg/dL (74-106)
[2024-05-12] MEDS: FAMOTIDINE 20 MG TAB PO SCH (08:42)
[2024-05-12] MEDS: FUROSEMIDE 20 MG/2 ML VIAL IV SCH (08:43)
[2024-05-12] MEDS: ENOXAPARIN SOD 40 MG/0.4 ML SYRINGE SC SCH (08:43)
[2024-05-12 11:32] LABS: Alanine Aminotransferase 27 U/L (7-40); Albumin 4.1 g/dL (3.2-4.8); Alkaline Phosphatase 55 U/L (46-116); Anion Gap 10 (5-15); Aspartate Aminotransferase 28 U/L (13-40); BUN/Creatinine Ratio 16.1 (10.0-20.0); Bilirubin, Total 0.5 mg/dL (0.2-1.0); Blood Urea Nitrogen 9 mg/dL (9-23); Calcium 9.2 mg/dL (8.7-10.4); Carbon Dioxide 28 mmol/L (20-31); Chloride 102 mmol/L (98-107); Glucose 99 mg/dL (74-106); Potassium 4.1 mmol/L (3.5-5.1); Sodium 140 mmol/L (136-145); Total Protein 6.3 g/dL (5.7-8.2)
--- NOTE | 2024-05-12 15:48 | DVHSR ---
APPROVED REPORT EXAM: Two-dimensional and M-mode echocardiogram with Doppler and color Doppler. Blood Pressure: 154/77 mmHg INDICATION Dyspnea RISK FACTORS Height: 63, Weight: 284 DIMENSIONS LVDd (3.8-5.7cm)LA (2D)4.4 (1.9-4.0cm)Aortic Root3.7 (2.0-3.7cm) EF (%) 61.0 (55-70%)Rt. Atrium3.9 (1.9-4.0cm)Asc. Aorta cm Mitral Valve MitralMitral Stenosis E wave0.94m/sMV Mean GR.mmHg A wave0.87m/sMV Peak GR.65mmHg E/A ratio1.12D MVAcm2 DECEL [id number] 1/2 [id number] IVRTmsDop MVA2.82cm2 Aortic Valve Aortic ValveAortic Stenosis V11.08m/[place] Mean GR.5mmHg V21.53m/[place] Peak GR.9mmHg Tricuspid Valve TR Velocity2.62m/s [id number] Other Information Technically limited study due to body habitus and patient position. Conclusion Technically good study. Sinus rhythm. Difficult acoustic windows. Aortic root enlargement. Left atrial enlargement. Valves are normal. EF appears to be preserved from the limited views obtained. Overall estimated ejection fraction is c alculated at about 55% with normal RV function. Dopplers unremarkable. No pericardial effusion masses or vegetations discernible.
--- NOTE | 2024-05-12 19:17 | DVHPNRES ---
Progress Note Date Seen: May 12, 2024 Resident Creating Document: EDGARDO MANNING RESIDENT Medical Necessity Reason Pt with a Central, PICC or Fol: No Subjective Review of Systems Patient is an 83-year-old female with past medical history of rheumatoid arthritis, hypertension, osteoarthritis,on home oxygen 3 L presented to the ED for an evaluation of progressive shortness of breath. According to the patient, for the last 1 week she has been experiencing chills, flu-like symptoms for which she tried using home remedies, however, her symptoms progressively worsened. Per patient and daughter at bedside, her shortness of breaths has worsened to the point where she feels out of breath when walking from her bedroom to the bathroom, notes feeling out of breath and dyspnea on eating. Patient was seen and examined on the bedside. She is alert oriented x3. Mentioned improved shortness of breath and cough . No other active complaints. Objective vital signs Vital Sign Date Time Temp Pulse Resp B/P (MAP) Pulse Ox O2 Delivery O2 Flow Rate FiO2 05/12/24 18:43 70 16 98 05/12/24 18:37 Nasal Cannula 2.0 05/12/24 18:37 28 05/12/24 17:00 98.0 130/59 (82) 98.0 Total Intake and Output 05/11/24 05/11/24 05/12/24 15:00 23:00 07:00 Intake Total 50 ml 850 ml 490 ml Balance 50 ml 850 ml 490 ml medications Current Medications Medications Dose Ordered Sig/Devendra Route Start Time Stop Time Status Last Admin Dose Admin Acetaminophen 650 mg Q6HP PRN PO 05/10/24 22:30 Ceftriaxone Sodium 50 ml @ 100 mls/hr DAILY@09 IV 05/11/24 09:00 05/12/24 08:41 100 MLS/HR Azithromycin 250 ml @ 125 mls/hr Q24H IV 05/11/24 22:00 05/11/24 22:15 125 MLS/HR Guaifenesin 200 mg Q6HP PRN PO 05/10/24 23:45 05/11/24 23:10 200 MG Ipratropium [place] 0.5 mg Q6HWA NEB 05/11/24 06:00 05/12/24 18:37 0.5 MG Albuterol 2.5 mg Q6HWA NEB 05/11/24 06:00 05/12/24 18:37 2.5 MG Atenolol 25 mg BID PO 05/11/24 10:00 05/12/24 08:42 25 MG Furosemide 20 mg DAILY IV 05/12/24 10:00 05/12/24 08:43 20 MG Famotidine 20 mg DAILY PO 05/12/24 10:00 05/12/24 08:42 20 MG Enoxaparin Sodium 40 mg DAILY SC 05/12/24 10:00 05/12/24 08:43 40 MG Examination Physical examination: General Appearance: Alert, Oriented X3, Cooperative, No acute distress HEENT: Atraumatic, PERRLA, EOMI, Mucous membrane moist/pink Respiratory: Lt sided basal crackles and Rt sided decreased breath sound. Cardiovascular: Regular rate, Normal S1, Normal S2, No murmurs, no chest wall tenderness Abdominal: Normal bowel sounds, Soft, No tenderness, No hepatospenomegaly, No masses Extremities: Bilateral pedal edema +, No clubbing, No cyanosis, Normal pulses. Skin: No rashes, No breakdown, No significant lesion Neuro: Use cane, Normal speech, Strength at 5/5 X4 ext, Normal tone, Sensation intact, grossly intact cranial nerves. Psych/Mental Status: Mental status NL, Mood NL laboratory and microbiology Laboratory Tests 05/12/24 04:50 Test 05/12/24 04:50 Range/Units Serum Glucose 99 74-106 mg/dL Microbiology Date/Time Source Procedure Growth Status 05/11/24 14:08 Sputum Gram Stain - Final Resulted 05/11/24 14:08 Sputum Respiratory Culture - Preliminary Resulted 05/10/24 23:45 Nose MRSA Screen - Final Complete 05/10/24 23:06 Blood Blood Culture - Preliminary NO GROWTH AFTER 24 HOURS OF INCUBATION. Resulted Labs and/or images reviewed: Labs reviewed by me, Image(s) reviewed by me Problem List/Assessment/Plan Problem List/Assessment/Plan Assessment/Plan # Acute hypoxic respiratory failure likely secondary to Community-acquired pneumonia, Gram-positive versus Gram-negative # Community-acquired pneumonia, Gram-positive versus Gram-negative # Rule out interstitial lung disease - CXR: Left lower lobe trace opacity may be of infectious etiology. Interstitial prominence is relatively nonspecific but can be seen with edema, reactive airway changes as well as atypical infection. - Covid/Flu/MRSA negative - Pending sputum culture - IV ceftriaxone 1 gm daily and IV azithromycin 500 mg daily. - incentive spirometry - ipratropium and albuterol med nebs as needed - Robitussin as needed for cough - Consulted Pulmonology. # Rule out congestive heart failure - BNP is mildly elevated - Echo revealed EF 55% and RVSP 38mm of hg. # Hypertension - resumed home medication atenolol 25 mg # Prediabetic, HbA1C 5.8 - Counseled patient regarding low carb diet, lifestyle modification and moderate intensity exercise. Diet : Cardiac diet PUD prophylaxis: Pepcid 20 mg daily DVT prophylaxis: Lovenox 40 mg SC daily. Code status : Full code Plan discussed with Dr. Mcclure Plan discussed with: Patient, Other Dietary Evaluation Review Recommendations by RD: Dietary education by RD Date of Service: May 12, 2024 Billing Provider: BRE SANCHEZ MD Common Visit Codes: [id number] INP/OBS CARE(HIGH) EDGARDO MANNING RESIDENT May 12, 2024 19:17 BRE SANCHEZ MD May 18, 2024 23:51
--- NOTE | 2024-05-12 23:56 | DVHPN2 ---
Progress Note - Dictate Date Seen: May 12, 2024 Medical Necessity Reason Pt with a Central, PICC or Fol: No Subjective Patient seen and examined at bedside. Remains on supplemental oxygen Overnight events reviewed. vital signs Vital Sign Date Time Temp Pulse Resp B/P (MAP) Pulse Ox O2 Delivery O2 Flow Rate FiO2 05/12/24 21:46 76 116/57 05/12/24 21:00 98.5 18 96 98.5 05/12/24 20:00 Nasal Cannula* 2 28 Total Intake and Output 05/11/24 05/11/24 05/12/24 15:00 23:00 07:00 Intake Total 50 ml 850 ml 490 ml Balance 50 ml 850 ml 490 ml medications Current Medications Medications Dose Ordered Sig/Devendra Route Start Time Stop Time Status Last Admin Dose Admin Acetaminophen 650 mg Q6HP PRN PO 05/10/24 22:30 Ceftriaxone Sodium 50 ml @ 100 mls/hr DAILY@09 IV 05/11/24 09:00 05/12/24 08:41 100 MLS/HR Azithromycin 250 ml @ 125 mls/hr Q24H IV 05/11/24 22:00 05/12/24 21:47 125 MLS/HR Guaifenesin 200 mg Q6HP PRN PO 05/10/24 23:45 05/11/24 23:10 200 MG Ipratropium [place] 0.5 mg Q6HWA NEB 05/11/24 06:00 05/12/24 18:37 0.5 MG Albuterol 2.5 mg Q6HWA [place] 05/11/24 06:00 05/12/24 18:37 2.5 MG Atenolol 25 mg BID PO 05/11/24 10:00 05/12/24 21:46 25 MG Furosemide 20 mg DAILY IV 05/12/24 10:00 05/12/24 08:43 20 MG Famotidine 20 mg DAILY PO 05/12/24 10:00 05/12/24 08:42 20 MG Enoxaparin Sodium 40 mg DAILY SC 05/12/24 10:00 05/12/24 08:43 40 MG objective Gen.: Patient lying in bed in no apparent distress. On supplemental oxygen. Head: Normocephalic, atraumatic. Eyes: EOMI/PERRLA. Ears: Normal hearing. Normal anatomy. Neck/trachea: Trachea midline, supple. Nose: Normal external anatomy. Mouth: Moist mucous membranes. Chest: Decreased air entry bilaterally. No wheezing or rhonchi. Cardiovascular: Positive S1, positive S2. Regular rate and rhythm. Abdomen: Positive bowel sounds in all 4 quadrants. Soft, non-tender, non- distended. : Deferred. Rectal: Deferred. Skin: Warm, dry. Intact. Extremities: 2+ radial pulses bilaterally. No lower extremity edema. Neuro: Awake, alert, oriented x3. No gross motor or sensory deficits. Cranial nerves II through XII intact. Gait not assessed. laboratory and microbiology Laboratory Tests 05/12/24 04:50 Test 05/12/24 04:50 Range/Units Serum Glucose 99 74-106 mg/dL Assessment/Plan Impression: Acute hypoxic respiratory failure Dependence on supplemental oxygen Pneumonia, Atypical Atelectasis Interstitial opacities Morbid obesity BMI 50.4 Pleural effusions, trace Ground glass opacities on imaging Events: Remains on supplemental oxygen, 2 LPM NC Taper O2 as tolerated Continue bronchodilators Continue antibiotics Incentive spirometry Diurese as tolerated w/ Lasix Monitor renal function Monitor ins and outs Labs and imaging reviewed. Rest of plan as noted below. Plan: Supplemental oxygen Titrate to keep O2 sats above 92%. Obtain CT chest to rule out ILD. Continue bronchodilators. Continue antibiotics, cover for atypical organisms Incentive spirometry Follow up sputum cultures Monitor renal function. Monitor electrolytes. Supplement as necessary. Monitor ins and outs. Diet and lifestyle modifications for weight reduction Morbid obesity - complicates all care DVT prophylaxis. Prognosis: Poor given patient's multiple co-morbidities. Rest of plan per hospitalist and other consultants. Thank you Dr. Ortega, for allowing me to participate in this patient's care. Further recommendations will depend on the patient's clinical course. Please do not hesitate to contact me if you have any questions or concerns. This medical document was created using an electronic medical record system with [email or web address] dictation system. Although these documentations are being carefully reviewed, there may still be some phonetic and typographical changes. The errors are purely typographical, due to imperfection on the software program, and do not reflect any compromise in the patient's medical care. Dietary Evaluation Review Recommendations by RD: Dietary education by RD Plan discussed with: Patient, Other (NICKY Arzola) JENNIFER JARRETT MD May 12, 2024 23:56
[2024-05-13] VITALS (15 sets, daily range): BP systolic 115–145; BP diastolic 54–84; PULSE 65–81; RESP 18–20; TEMP 97.6–98.5; O2SAT 92–99
[2024-05-13 06:05] LABS: Basophils # (auto) 0 10 ^3/uL (0-0.2); Basophils % (auto) 0.4 % (0.0-2.0); Eosinophils # (auto) 0.2 10 ^3/uL (0-0.8); Hematocrit 35.7 % (36.0-46.0); Hemoglobin 11.8 g/dL (12.2-16.2); Lymphocytes # (auto) 1.3 10 ^3/uL (0.4-5.4); Lymphocytes % (auto) 29.6 % (10.0-50.0); Mean Corpuscular Hemoglobin 29.2 pg (28.0-32.0); Mean Corpuscular Hgb Conc. 33.2 g/dL (32.0-36.0); Mean Corpuscular Volume 87.9 fL (80.0-100.0); Monocytes # (auto) 0.4 10 ^3/uL (0-1.3); Monocytes % (auto) 10.3 % (0.0-12.0); Neutrophils # (auto) 2.4 10 ^3/uL (1.6-8.6); Neutrophils % (auto) 55.7 % (37.0-80.0); Nucleated Red Blood Cells % 0.3 %; Platelet Count (auto) 173 10^3/uL (140-450); Red Blood Cells 4.06 10^6/uL (4.0-5.20); Red Cell Distribution Width 14.7 % (11.8-14.3); White Blood Cell 4.3 10^3/uL (4.4-10.8)
[2024-05-13 06:26] LABS: Alanine Aminotransferase 26 U/L (7-40); Albumin 4.2 g/dL (3.2-4.8); Alkaline Phosphatase 59 U/L (46-116); Anion Gap 9 (5-15); Aspartate Aminotransferase 27 U/L (13-40); BUN/Creatinine Ratio 13.1 (10.0-20.0); Calcium 9.5 mg/dL (8.7-10.4); Carbon Dioxide 28 mmol/L (20-31); Chloride 103 mmol/L (98-107); Glucose 99 mg/dL (74-106); Sodium 140 mmol/L (136-145)
[2024-05-13 06:27] LABS: Bilirubin, Total 0.5 mg/dL (0.2-1.0); Blood Urea Nitrogen 8 mg/dL (9-23); Total Protein 6.6 g/dL (5.7-8.2)
[2024-05-13] MEDS: FUROSEMIDE 20 MG/2 ML VIAL IV ONE (11:51)
[2024-05-13] MEDS ORDERED: FUROSEMIDE 20 MG/2 ML VIAL IV SCH (18:00)
[2024-05-13] MEDS: FUROSEMIDE 20 MG/2 ML VIAL IV SCH (18:31)
--- NOTE | 2024-05-13 18:57 | DVHPNRES ---
Progress Note Date Seen: May 13, 2024 Resident Creating Document: EDGARDO MANNING RESIDENT Medical Necessity Reason Pt with a Central, PICC or Fol: No Subjective Review of Systems Patient is an 83-year-old female with past medical history of rheumatoid arthritis, hypertension, osteoarthritis,on home oxygen 3 L presented to the ED for an evaluation of progressive shortness of breath. According to the patient, for the last 1 week she has been experiencing chills, flu-like symptoms for which she tried using home remedies, however, her symptoms progressively worsened. Per patient and daughter at bedside, her shortness of breaths has worsened to the point where she feels out of breath when walking from her bedroom to the bathroom, notes feeling out of breath and dyspnea on eating. Patient was seen and examined on the bedside. She is alert oriented x3 and on 2 L oxygen through nasal canula. Mentioned improved shortness of breath and cough . No other active complaints. Objective vital signs Vital Sign Date Time Temp Pulse Resp B/P (MAP) Pulse Ox O2 Delivery O2 Flow Rate FiO2 05/13/24 18:31 123/54 05/13/24 16:47 97.6 65 20 97 97.6 05/13/24 10:00 Nasal Cannula* 2 28 Total Intake and Output 05/12/24 05/12/24 05/13/24 15:00 23:00 07:00 Intake Total 50 ml 1115 ml 720 ml Balance 50 ml 1115 ml 720 ml medications Current Medications Medications Dose Ordered Sig/Devendra Route Start Time Stop Time Status Last Admin Dose Admin Acetaminophen 650 mg Q6HP PRN PO 05/10/24 22:30 Ceftriaxone Sodium 50 ml @ 100 mls/hr DAILY@09 IV 05/11/24 09:00 05/13/24 09:00 100 MLS/HR Azithromycin 250 ml @ 125 mls/hr Q24H IV 05/11/24 22:00 05/12/24 21:47 125 MLS/HR Guaifenesin 200 mg Q6HP PRN PO 05/10/24 23:45 05/11/24 23:10 200 MG Ipratropium [place] 0.5 mg Q6HWA NEB 05/11/24 06:00 05/13/24 13:08 0.5 MG Albuterol 2.5 mg Q6HWA NEB 05/11/24 06:00 05/13/24 13:08 2.5 MG Atenolol 25 mg BID PO 05/11/24 10:00 05/13/24 09:01 25 MG Famotidine 20 mg DAILY PO 05/12/24 10:00 05/13/24 09:00 20 MG Enoxaparin Sodium 40 mg DAILY SC 05/12/24 10:00 05/13/24 09:01 40 MG Furosemide 20 mg BIDD IV 05/13/24 18:00 Cancel Furosemide 20 mg BIDD IV 05/13/24 18:00 05/13/24 18:31 20 MG Examination Physical examination: General Appearance: Alert, Oriented X3, Cooperative, No acute distress HEENT: Atraumatic, PERRLA, EOMI, Mucous membrane moist/pink Respiratory: Lt sided basal crackles and Rt sided vesicular breath sound. Cardiovascular: Regular rate, Normal S1, Normal S2, No murmurs, no chest wall tenderness Abdominal: Normal bowel sounds, Soft, No tenderness, No hepatospenomegaly, No masses Extremities: Bilateral pedal edema +, No clubbing, No cyanosis, Normal pulses. Skin: No rashes, No breakdown, No significant lesion Neuro: Use cane, Normal speech, Strength at 5/5 X4 ext, Normal tone, Sensation intact, grossly intact cranial nerves. Psych/Mental Status: Mental status NL, Mood NL laboratory and microbiology Laboratory Tests 05/13/24 04:34 Test 05/13/24 04:34 Range/Units Serum Glucose 99 74-106 mg/dL Microbiology Date/Time Source Procedure Growth Status 05/11/24 14:08 Sputum Gram Stain - Final Resulted 05/11/24 14:08 Sputum Respiratory Culture - Preliminary Resulted 05/10/24 23:45 Nose MRSA Screen - Final Complete 05/10/24 23:06 Blood Blood Culture - Preliminary NO GROWTH AFTER 48 HOURS OF INCUBATION. Resulted Labs and/or images reviewed: Labs reviewed by me, Image(s) reviewed by me Problem List/Assessment/Plan Problem List/Assessment/Plan Assessment/Plan # Acute hypoxic respiratory failure likely secondary to Community-acquired pneumonia, Gram-positive versus Gram-negative # Community-acquired pneumonia, Gram-positive versus Gram-negative # Rule out interstitial lung disease - CXR: Left lower lobe trace opacity may be of infectious etiology. Interstitial prominence is relatively nonspecific but can be seen with edema, reactive airway changes as well as atypical infection. - Covid/Flu/MRSA negative - Pending sputum culture - IV ceftriaxone 1 gm daily and IV azithromycin 500 mg daily. - incentive spirometry - ipratropium and albuterol med nebs as needed - Robitussin as needed for cough - Consulted Pulmonology. # possible acute on chronic HFpEF - BNP is mildly elevated - Echo revealed EF 55% and RVSP 38mm of hg. - IV lasix 20 mg b.i.d # Hypertension - resumed home medication atenolol 25 mg # Prediabetic, HbA1C 5.8 - Counseled patient regarding low carb diet, lifestyle modification and moderate intensity exercise. Diet : Cardiac diet PUD prophylaxis: Pepcid 20 mg daily DVT prophylaxis: Lovenox 40 mg SC daily. Code status : Full code Plan discussed with Dr. Mcclure Plan discussed with: Patient, Other My Orders My Orders Orders - EDGARDO MANNING Procedure Category Date Status Time Furosemide Injection PHA 05/13/24 In Process (Lasix Injection) 18:00 Dietary Evaluation Review Recommendations by RD: Dietary education by RD Date of Service: May 13, 2024 Billing Provider: BRE SANCHEZ MD Common Visit Codes: 17572-[id number] INP/OBS CARE(HIGH) EDGARDO MANNING May 13, 2024 18:57 BRE SANCHEZ MD May 18, 2024 23:57
--- NOTE | 2024-05-13 23:20 | DVHPN2 ---
Progress Note - Dictate Date Seen: May 13, 2024 Medical Necessity Reason Pt with a Central, PICC or Fol: No Subjective Patient seen and examined at bedside. Remains on supplemental oxygen Overnight events reviewed. vital signs Vital Sign Date Time Temp Pulse Resp B/P (MAP) Pulse Ox O2 Delivery O2 Flow Rate FiO2 05/13/24 21:18 68 130/84 05/13/24 21:00 97.9 18 97 97.9 05/13/24 20:00 Nasal Cannula* 2 28 Total Intake and Output 05/12/24 05/12/24 05/13/24 15:00 23:00 07:00 Intake Total 50 ml 1115 ml 720 ml Balance 50 ml 1115 ml 720 ml medications Current Medications Medications Dose Ordered Sig/Devendra Route Start Time Stop Time Status Last Admin Dose Admin Acetaminophen 650 mg Q6HP PRN PO 05/10/24 22:30 Ceftriaxone Sodium 50 ml @ 100 mls/hr DAILY@09 IV 05/11/24 09:00 05/13/24 09:00 100 MLS/HR Azithromycin 250 ml @ 125 mls/hr Q24H IV 05/11/24 22:00 05/13/24 20:53 125 MLS/HR Guaifenesin 200 mg Q6HP PRN PO 05/10/24 23:45 05/11/24 23:10 200 MG Ipratropium [place] 0.5 mg Q6HWA NEB 05/11/24 06:00 05/13/24 19:05 0.5 MG Albuterol 2.5 mg Q6HWA [facility] 05/11/24 06:00 05/13/24 19:05 2.5 MG Atenolol 25 mg BID PO 05/11/24 10:00 05/13/24 21:18 25 MG Famotidine 20 mg DAILY PO 05/12/24 10:00 05/13/24 09:00 20 MG Enoxaparin Sodium 40 mg DAILY SC 05/12/24 10:00 05/13/24 09:01 40 MG Furosemide 20 mg BIDD IV 05/13/24 18:00 Cancel Furosemide 20 mg BIDD IV 05/13/24 18:00 05/13/24 18:31 20 MG objective Gen.: Patient lying in bed in no apparent distress. On supplemental oxygen. Head: Normocephalic, atraumatic. Eyes: EOMI/PERRLA. Ears: Normal hearing. Normal anatomy. Neck/trachea: Trachea midline, supple. Nose: Normal external anatomy. Mouth: Moist mucous membranes. Chest: Decreased air entry bilaterally. No wheezing or rhonchi. Cardiovascular: Positive S1, positive S2. Regular rate and rhythm. Abdomen: Positive bowel sounds in all 4 quadrants. Soft, non-tender, non- distended. : Deferred. Rectal: Deferred. Skin: Warm, dry. Intact. Extremities: 2+ radial pulses bilaterally. No lower extremity edema. Neuro: Awake, alert, oriented x3. No gross motor or sensory deficits. Cranial nerves II through XII intact. Gait not assessed. laboratory and microbiology Laboratory Tests 05/13/24 04:34 Test 05/13/24 04:34 Range/Units Serum Glucose 99 74-106 mg/dL Assessment/Plan Impression: Acute hypoxic respiratory failure Dependence on supplemental oxygen Pneumonia, Atypical Atelectasis Interstitial opacities Morbid obesity BMI 50.4 Pleural effusions, trace Ground glass opacities on imaging Events: Remains on supplemental oxygen, 2 LPM NC Taper O2 as tolerated Improved O2 requirements Continue bronchodilators Continue antibiotics Incentive spirometry Diurese as tolerated w/ Lasix Monitor renal function Monitor ins and outs Labs and imaging reviewed. Rest of plan as noted below. Plan: Supplemental oxygen Titrate to keep O2 sats above 92%. CT chest on 05/11/24: Patchy linear and ground-glass opacities bilaterally which could reflect atypical pneumonia. Trace bilateral pleural effusions. Mild splenomegaly and small portosystemic collateral vessels, could be due to underlying portal hypertension. Mildly prominent mediastinal and left internal mammary lymph nodes, nonspecific on initial exam though may be reactive. Mild cardiomegaly and coronary artery calcifications. Continue bronchodilators. Continue antibiotics, cover for atypical organisms Incentive spirometry Follow up sputum cultures Monitor renal function. Monitor electrolytes. Supplement as necessary. Monitor ins and outs. Diet and lifestyle modifications for weight reduction Morbid obesity - complicates all care DVT prophylaxis. Prognosis: Guarded given patient's multiple co-morbidities. Rest of plan per hospitalist and other consultants. Thank you Dr. Ortega, for allowing me to participate in this patient's care. Further recommendations will depend on the patient's clinical course. Please do not hesitate to contact me if you have any questions or concerns. This medical document was created using an electronic medical record system with Dragon computerized dictation system. Although these documentations are being carefully reviewed, there may still be some phonetic and typographical changes. The errors are purely typographical, due to imperfection on the software program, and do not reflect any compromise in the patient's medical care. Dietary Evaluation Review Recommendations by RD: Dietary education by RD Plan discussed with: Patient, Other ([address]) JENNIFER JARRETT MD May 13, 2024 23:20
[2024-05-14] VITALS (12 sets, daily range): BP systolic 106–130; BP diastolic 59–84; PULSE 65–79; RESP 16–20; TEMP 97.5–97.7; O2SAT 92–98
[2024-05-14 07:20] LABS: Basophils # (auto) 0 10 ^3/uL (0-0.2); Basophils % (auto) 0.3 % (0.0-2.0); Eosinophils # (auto) 0.2 10 ^3/uL (0-0.8); Eosinophils % (auto) 4.3 % (0.0-7.0); Hematocrit 35.4 % (36.0-46.0); Hemoglobin 11.9 g/dL (12.2-16.2); Lymphocytes # (auto) 1.2 10 ^3/uL (0.4-5.4); Lymphocytes % (auto) 27.5 % (10.0-50.0); Mean Corpuscular Hemoglobin 28.9 pg (28.0-32.0); Mean Corpuscular Hgb Conc. 33.6 g/dL (32.0-36.0); Mean Corpuscular Volume 86.1 fL (80.0-100.0); Monocytes # (auto) 0.4 10 ^3/uL (0-1.3); Monocytes % (auto) 10.4 % (0.0-12.0); Neutrophils # (auto) 2.4 10 ^3/uL (1.6-8.6); Neutrophils % (auto) 57.5 % (37.0-80.0); Nucleated Red Blood Cells % 0.1 %; Platelet Count (auto) 176 10^3/uL (140-450); Red Blood Cells 4.11 10^6/uL (4.0-5.20); Red Cell Distribution Width 14.7 % (11.8-14.3); White Blood Cell 4.2 10^3/uL (4.4-10.8)
[2024-05-14 07:31] LABS: Alanine Aminotransferase 27 U/L (7-40); Albumin 4.2 g/dL (3.2-4.8); Alkaline Phosphatase 59 U/L (46-116); Anion Gap 6 (5-15); Aspartate Aminotransferase 21 U/L (13-40); BUN/Creatinine Ratio 17.7 (10.0-20.0); Blood Urea Nitrogen 11 mg/dL (9-23); Calcium 9.5 mg/dL (8.7-10.4); Chloride 101 mmol/L (98-107); Glucose 101 mg/dL (74-106); Potassium 3.5 mmol/L (3.5-5.1); Sodium 140 mmol/L (136-145)
[2024-05-14 07:32] LABS: Bilirubin, Total 0.5 mg/dL (0.2-1.0); Total Protein 6.7 g/dL (5.7-8.2)
[2024-05-14 07:35] LABS: Carbon Dioxide 33 mmol/L (20-31)
[2024-05-14] MEDS ORDERED: FURO1TAB33 PO (11:49)
[2024-05-14] MEDS ORDERED: DOXY1CAP57 PO (11:49)
--- NOTE | 2024-05-14 11:49 | DVHDSRES ---
Discharge Summary Date of Admission Resident Creating Document: EDGARDO MANNING RESIDENT May 10, 2024 at 22:30 Date of Discharge: May 14, 2024 Admitting Diagnosis # Acute on chronic hypoxic respiratory failure likely secondary to Community-acquired Gram-positive versus Gram-negative pneumonia Wounds: No wound was present Labs/Diagnostic Data: Laboratory Results Test 05/14/24 05:39 05/11/24 00:26 05/10/24 23:06 05/10/24 22:45 White Blood Count 4.2 10^3/uL (4.4-10.8) Red Blood Count 4.11 10^6/uL (4.0-5.20) Hemoglobin 11.9 g/dL (12.2-16.2) Hematocrit 35.4 % (36.0-46.0) Mean Corpuscular Volume 86.1 fL (80.0-100.0) Mean Corpuscular Hemoglobin 28.9 pg (28.0-32.0) Mean Corpuscular Hemoglobin Concent 33.6 g/dL (32.0-36.0) Red Cell Distribution Width 14.7 % (11.8-14.3) Platelet Count 176 10^3/uL (140-450) Mean Platelet Volume 8.8 fL (6.9-10.8) Neutrophils (%) (Auto) 57.5 % (37.0-80.0) Lymphocytes (%) (Auto) 27.5 % (10.0-50.0) Monocytes (%) (Auto) 10.4 % (0.0-12.0) Eosinophils (%) (Auto) 4.3 % (0.0-7.0) Basophils (%) (Auto) 0.3 % (0.0-2.0) Neutrophils # (Auto) 2.4 10 ^3/uL (1.6-8.6) Lymphocytes # (Auto) 1.2 10 ^3/uL (0.4-5.4) Monocytes # (Auto) 0.4 10 ^3/uL (0-1.3) Eosinophils # (Auto) 0.2 10 ^3/uL (0-0.8) Basophils # (Auto) 0 10 ^3/uL (0-0.2) Nucleated Red Blood Cells 0.1 % Sodium Level 140 mmol/L (136-145) Potassium Level 3.5 mmol/L (3.5-5.1) Chloride Level 101 mmol/L (98-107) Carbon Dioxide Level 33 mmol/L (20-31) Anion Gap 6 (5-15) Blood Urea Nitrogen 11 mg/dL (9-23) Creatinine 0.62 mg/dL (0.550-1.02) Glomerular Filtration Rate Calc 87 mL/min (>90) BUN/Creatinine Ratio 17.7 (10.0-20.0) Serum Glucose 101 mg/dL (74-106) Calcium Level 9.5 mg/dL (8.7-10.4) Total Bilirubin 0.5 mg/dL (0.2-1.0) Aspartate Amino Transferase (AST) 21 U/L (13-40) Alanine Aminotransferase (ALT) 27 U/L (7-40) Alkaline Phosphatase 59 U/L (46-116) Total Protein 6.7 g/dL (5.7-8.2) Albumin 4.2 g/dL (3.2-4.8) Urine Color Light-yellow (Yellow) Urine Clarity Clear (Clear) Urine pH 6.0 (5.0-9.0) Urine Specific [place] 1.009 (1.001-1.035) Urine Protein Negative (Negative) Urine Ketones 1+ (Negative) Urine Blood Negative /uL (Negative) Urine Nitrite Negative (Negative) Urine Bilirubin Negative (Negative) Urine Urobilinogen Normal mg/dL (Negative) Urine Leukocyte Esterase Trace /uL (Negative) Urine RBC <1 /hpf (0 - 4) Urine Microscopic WBC 4 /HPF (0-5) Urine Squamous Epithelial Cells Few /hpf (<5) Urine Bacteria Few /hpf (None Seen) Urine Glucose Normal mg/dL (Normal) Hemoglobin A1c 5.8 % A1C (<5.7) Lactic Acid Level 1.3 mmol/L (0.4-2.0) Troponin I High Sensitivity 4 ng/L (</=34) B-Type Natriuretic Peptide 126.38 pg/mL (0-100) Triglycerides Level 72 mg/dL (< 150) Cholesterol Level 103 mg/dL (< 200) LDL Cholesterol 52 mg/dL (< 100) HDL Cholesterol 39 mg/dL (40-59) Influenza Type A Antigen Negative (Negative) Influenza Type B Antigen Negative (Negative) SARS-CoV-2 Antigen (Rapid) Negative (NEGATIVE) Other Laboratory Tests 05/14/24 05:39 Brief Hx & Hospital Course: Patient is an 83-year-old female with past medical history of rheumatoid arthritis, hypertension, osteoarthritis,on home oxygen 3 L presented to the ED for an evaluation of progressive shortness of breath. According to the patient, for the last 1 week she has been experiencing chills, flu-like symptoms for which she tried using home remedies, however, her symptoms progressively worsened. Per patient and daughter at bedside, her shortness of breaths has worsened to the point where she feels out of breath when walking from her bedroom to the bathroom, notes feeling out of breath and dyspnea on eating. Hospital course: Patient presented with Acute on chronic hypoxic respiratory failure likely secondary to Community-acquired pneumonia, Gram-positive versus Gram-negative and CXR showed Left lower lobe trace opacity may be of infectious etiology. Interstitial prominence is relatively nonspecific but can be seen with edema, reactive airway changes as well as atypical infection. BNP is mildly elevated and Echo revealed EF 55% and RVSP 38mm of hg. Patient was treated with IV ceftriaxone 1 g daily, IV azithromycin 500 mg daily, breathing treatment p.r.n., Robitussin as needed for cough and IV Lasix 20 mg b.i.d. Today morning patient mentioned improved shortness of breath and oxygen requirement titrated down to 2 L of her home dose and discharge plan was discussed with the patient and all questions were answered. Patient is being discharged to home. Discharge diagnosis: # Acute on chronic hypoxic respiratory failure likely secondary to Community- acquired Gram-positive versus Gram-negative pneumonia # Community-acquired pneumonia, Gram-positive versus Gram-negative # Ruled out interstitial lung disease # Possible acute on chronic HFpEF # Hypertension # Prediabetic, HbA1C 5.8 # Morbid obesity ( BMI 50.5 kg/m2) Discharge Plan: Disposition : Home Medications : Doxycycline 100 mg p.o. b.i.d. for 5 days, Lasix 20 mg every other day for 1 month and continue home medications Follow up : PCP in 1 week Cardiology in 1-2 weeks. Consults/Reason for consult Pulmonology was consulted Operations or Procedures EXAMINATION: PA and lateral chest radiographs CLINICAL HISTORY: chest pain COMPARISON: None FINDINGS: Mild diffuse interstitial prominence. Hazy airspace opacity left lower lung field. No definite pneumothorax. Mild prominence of the cardiac silhouette. IMPRESSION: Left lower lobe trace opacity may be of infectious etiology. Interstitial prominence is relatively nonspecific but can be seen with edema, reactive airway changes as well as atypical infection. Please correlate clinically. CLINICAL HISTORY: left lower lobe opacities TECHNIQUE: CT of the chest was performed without intravenous contrast. This exam was performed according to our departmental dose optimization program. Up-to-date CT equipment and radiation dose reduction techniques are utilized as appropriate. Radiation optimization: All CT scans at this facility use at least one of these dose optimization techniques: automated exposure control mA and/or kV adjustment per patient size (includes targeted exams where dose is matched to clinical indication) or iterative reconstruction. COMPARISON: None FINDINGS: Lower Neck: Unremarkable Axilla, Mediastinum and Olive: A mildly prominent left internal mammary lymph node on series 3, image 39. Prominent mediastinal lymph nodes. Limited evaluation of the olive in the absence of intravenous contrast. Heart and Great Vessels: Mild cardiomegaly with trace pericardial fluid. The thoracic aorta is normal in caliber containing mild calcified atherosclerotic plaque. At least mild coronary artery calcifications greatest in the left anterior descending coronary artery. Airway, Lungs and Pleura: Trachea and central airways are patent. Linear and ground-glass bilateral opacities. Trace bilateral pleural effusions. No pneumothorax. Upper Abdomen: Mild splenomegaly. Nodular contour of the liver. Prior cholecystectomy. Portosystemic collateral vessels. Chest Wall and Osseous Structures: No destructive osseous lesion. There is a4 small right shoulder joint effusion. Multilevel thoracic spondylosis. IMPRESSION: 1. Patchy linear and ground-glass opacities bilaterally which could reflect atypical pneumonia. A component of scarring or pulmonary edema could contribute to this appearance. 2. Trace bilateral pleural effusions. 3. Nodular contour of the liver which could be fibrosis or cirrhosis. Mild splenomegaly and small portosystemic collateral vessels could be due to underlying portal hypertension. Correlate with liver enzymes and clinical history. 4. Mildly prominent mediastinal and left internal mammary lymph nodes, nonspecific on initial exam though may be reactive. 5. Mild cardiomegaly and at least mild coronary artery calcifications. Condition at Discharge: Stable Final Diagnosis/Problems List # Acute on chronic hypoxic respiratory failure likely secondary to Community-acquired Gram-positive versus Gram-negative pneumonia # Community-acquired pneumonia, Gram-positive versus Gram-negative # Ruled out interstitial lung disease # Possible acute on chronic HFpEF # Morbid obesity ( BMI 50.5 kg/m2) # Hypertension # Prediabetic, HbA1C 5.8 Discharge Disposition: Home Discharge Instruct/Medications Diet: Cardiac 2g Na,low cholest Activity: No Restrictions, As Tolerated Follow Up/Referral: Follow up with PCP 1 week Follow up with Cardiology in 1-2 weeks Medications: Doxycycline 100 mg p.o. b.i.d. for 5 days Lasix 20 mg p.o. every other day for 1 month Discharge Statement: "Patient was advised to return to the ER or call 911 if any headaches, dizziness, shortness of breath, chest pain, abdominal pain, bleeding, fevers, or worsening of medical condition. Patient was counseled about treatment plan, medications, possible side effects, patientverbalized understanding. All questions were answered to the best of my ability. This discharge took greater then 30 minutes in planning, reviewing documentation, counseling the patient, and discussing with other team members." ASSESSMENT ASSESSMENT Assessment # Acute on chronic hypoxic respiratory failure likely secondary to Community- acquired Gram-positive versus Gram-negative pneumonia # Community-acquired pneumonia, Gram-positive versus Gram-negative # Ruled out interstitial lung disease # Possible acute on chronic HFpEF # Hypertension # Prediabetic, HbA1C 5.8 EDGARDO MANNING RESIDENT May 14, 2024 11:49
--- NOTE | 2024-05-14 22:57 | DVHPN2 ---
Progress Note - Dictate Date Seen: May 14, 2024 Medical Necessity Reason Pt with a Central, PICC or Fol: No Subjective Patient seen and examined at bedside. Remains on supplemental oxygen Overnight events reviewed. vital signs Vital Sign Date Time Temp Pulse Resp B/P (MAP) Pulse Ox O2 Delivery O2 Flow Rate FiO2 05/14/24 13:29 72 18 98 05/14/24 13:24 Nasal Cannula* 1 24 05/14/24 13:00 97.5 119/61 (80) 97.5 Total Intake and Output 05/13/24 05/13/24 05/14/24 15:00 23:00 07:00 Intake Total 50 ml 680 ml 300 ml Balance 50 ml 680 ml 300 ml medications Current Medications Medications Dose Ordered Sig/Devendra Route Start Time Stop Time Status Last Admin Dose Admin Furosemide 20 mg BIDD IV 05/13/24 18:00 Cancel objective Gen.: Patient lying in bed in no apparent distress. On supplemental oxygen. Head: Normocephalic, atraumatic. Eyes: EOMI/PERRLA. Ears: Normal hearing. Normal anatomy. Neck/trachea: Trachea midline, supple. Nose: Normal external anatomy. Mouth: Moist mucous membranes. Chest: Decreased air entry bilaterally. No wheezing or rhonchi. Cardiovascular: Positive S1, positive S2. Regular rate and rhythm. Abdomen: Positive bowel sounds in all 4 quadrants. Soft, non-tender, non- distended. : Deferred. Rectal: Deferred. Skin: Warm, dry. Intact. Extremities: 2+ radial pulses bilaterally. No lower extremity edema. Neuro: Awake, alert, oriented x3. No gross motor or sensory deficits. Cranial nerves II through XII intact. Gait not assessed. laboratory and microbiology Laboratory Tests 05/14/24 05:39 Test 05/14/24 05:39 Range/Units Serum Glucose 101 74-106 mg/dL Assessment/Plan Impression: Acute hypoxic respiratory failure Dependence on supplemental oxygen Pneumonia, Atypical Atelectasis Interstitial opacities Morbid obesity BMI 50.4 Pleural effusions, trace Ground glass opacities on imaging Events: Remains on supplemental oxygen, 2 LPM NC Taper O2 as tolerated Improved O2 requirements Continue bronchodilators PRN Continue antibiotics Incentive spirometry Diurese as tolerated w/ Lasix Monitor renal function Monitor ins and outs Patient is stable for discharge from the pulmonary standpoint. Recommend outpatient eval for KEO. Labs and imaging reviewed. Rest of plan as noted below. Plan: Supplemental oxygen Titrate to keep O2 sats above 92%. CT chest on 05/11/24: Patchy linear and ground-glass opacities bilaterally which could reflect atypical pneumonia. Trace bilateral pleural effusions. Mild splenomegaly and small portosystemic collateral vessels, could be due to underlying portal hypertension. Mildly prominent mediastinal and left internal mammary lymph nodes, nonspecific on initial exam though may be reactive. Mild cardiomegaly and coronary artery calcifications. Continue bronchodilators. Continue antibiotics, cover for atypical organisms Incentive spirometry Follow up sputum cultures Monitor renal function. Monitor electrolytes. Supplement as necessary. Monitor ins and outs. Diet and lifestyle modifications for weight reduction Morbid obesity - complicates all care DVT prophylaxis. Prognosis: Guarded given patient's multiple co-morbidities. Rest of plan per hospitalist and other consultants. Thank you Dr. Ortega, for allowing me to participate in this patient's care. Further recommendations will depend on the patient's clinical course. Please do not hesitate to contact me if you have any questions or concerns. This medical document was created using an electronic medical record system with [employer] dictation system. Although these documentations are being carefully reviewed, there may still be some phonetic and typographical changes. The errors are purely typographical, due to imperfection on the software program, and do not reflect any compromise in the patient's medical care. Dietary Evaluation Review Recommendations by RD: Dietary education by [facility] Plan discussed with: Patient, Other ([address]) JENNIFER JARRETT MD May 14, 2024 22:57
== END 2024-05-14 15:20 | disposition home or self-care (01) | DRG 177 ==
LOC: ER 17:46 → OVERFLOW 22:30 → EDBD 22:30 → WEST WING 05-11 01:18
PROVIDERS: ADMIT Student in an Organized Health Care Education/Training Program; ATTEND Student in an Organized Health Care Education/Training Program
DX: J15.69 Pneumonia due to other Gram-negative bacteria (principal); I50.33 Acute on chronic diastolic (congestive) heart failure; J96.21 Acute and chronic respiratory failure with hypoxia; Z68.43 Body mass index [BMI] 50.0-59.9, adult; J98.11 Atelectasis; Z20.822 Contact with and (suspected) exposure to COVID-19; E66.01 Morbid (severe) obesity due to excess calories; E11.9 Type 2 diabetes mellitus without complications; I11.0 Hypertensive heart disease with heart failure; M06.9 Rheumatoid arthritis, unspecified; J15.9 Unspecified bacterial pneumonia; Z90.49 Acquired absence of other specified parts of digestive tract; Z90.710 Acquired absence of both cervix and uterus; Z99.81 Dependence on supplemental oxygen
CPT/HCPCS: 36415; 71046; 71250; 80048; 80053; 80061; 81001; 83036; 83605; 83880; 84484; 85025; 87040; 87070; 87081; 87205; 87426; 87804; 93005; 93306; 94640; G0378; J0692